=== PATIENT | female | born 1960 | race African-American/Black ===

== ENCOUNTER 2019-10-22 14:35 | Emergency (ER) | payer BC, SELFPAY ==
[2019-10-22 14:41] VITALS: BP 145/74; PULSE 83; RESP 16; TEMP 37; O2SAT 98
--- NOTE | 2019-10-22 14:55 | ED.URI ---
HPI - URI/Sore Throat General Chief Complaint: Upper Respiratory Infection Stated Complaint: sinus congestion Time Seen by Provider: 10/22/19 14:55 Source: patient and RN notes reviewed History of Present Illness HPI Narrative: Patient is a 59-year-old female presents the urgent care with complaints of sinus congestion, intermittent lightheadedness and coughing since Wednesday. Patient states that the cough subsided but she is still having a lot of postnasal drainage. Patient states that she has been taking cold and sinus Tylenol and ibuprofen [id number]. No other acute complaints. No acute distress noted. Patient read the plan of care. Related Data Allergies Allergy/AdvReac Type Severity Reaction Status Date / Time No Known Allergies Allergy Verified 06/28/14 13:48 Review of Systems Review of Systems: Narrative: CONSTITUTIONAL: Denies fever, chills, or sweats. EYES: Denies visual changes, redness, or discharge. ENT: Reports of rhinorrhea and postnasal drainage with sinus congestion CARDIOVASCULAR: Denies chest pain, palpitations, or edema. RESPIRATORY: Denies cough or dyspnea. GASTROINTESTINAL: Denies abdominal pain, nausea, vomiting, or diarrhea. GENITOURINARY: Denies dysuria or hematuria. SKIN: Denies rash or itching. MUSCULOSKELETAL: Denies back pain, joint pain, or myalgia. NEUROLOGIC: Denies headache, numbness, or weakness. All other systems reviewed are negative, except as documented in HPI. [facility] Family History Family History (Updated 10/08/16 @ 08:02 by DOCTOR UNKNOWN) Father Family history of lung cancer, Onset Age: 55 Mother Family history of malignant neoplasm of breast in first degree relative Family history of kidney disease, Onset Age: 70 Sibling Patient's sister is in good health Patient's brother is in good health Social History Social History Smoking status: Former smoker Second hand tobacco smoke exposure: No Smoking end date: 08/09/89 Alcohol intake: never Comments At the time of my signature, I reviewed and agree with the nursing past medical, surgical, social, and family history. There is no relevant family history pertinent to the patient complaint. Exam Narrative: Exam Narrative: GENERAL: This is a well-nourished, well-developed patient, in no apparent distress. HEAD: normocephalic, atraumatic. EYES: PERRL. Sclera clear/white. Vision is grossly intact. EARS: External ears normal, auditory canals clear and without drainage, TMs normal without perforation. Hearing grossly intact. NOSE: External nose normal with no obvious nasal discharge, nares without redness, clear rhinorrhea. THROAT: Mucous membranes moist, posterior pharynx clear. Mild postnasal drainage NECK: Neck supple CARDIOVASCULAR: Regular rate and rhythm without murmurs, gallops, or rubs. RESPIRATORY: Clear to auscultation. Breath sounds equal bilaterally. No wheezes, rales, or rhonchi. SKIN: warm, intact with no suspicious lesions or rash, good texture and turgor. NEURO: awake, alert, and oriented to person, place and time. There were no obvious focal neurologic abnormalities. EXTREMITIES: No clubbing, cyanosis, or edema. Course Vital Signs Vital signs: Vital Signs Temperature 98.6 F 10/22/19 14:41 Pulse Rate 83 10/22/19 14:41 Respiratory Rate 16 10/22/19 14:41 Blood Pressure 145/74 H 10/22/19 14:41 Pulse Oximetry 98 10/22/19 14:41 Temperature 98.6 F 10/22/19 14:41 Pulse Rate 83 10/22/19 14:41 Respiratory Rate 16 10/22/19 14:41 Blood Pressure 145/74 H 10/22/19 14:41 Pulse Oximetry 98 10/22/19 14:41 Reviewed?patient is informed that they may have pre-hypertension or hypertension based on a blood pressure reading in the department. I recommend the patient call the primary care provider listed on their discharge instructions or a physician of their choice this week to arrange follow-up for further evaluation of possible pre-hypertension or hypertension. MDM - URI/S
== END 2019-10-22 15:27 | disposition home or self-care (01) ==
PROVIDERS: Emergency Provider Nurse Practitioner Family; PCP Internal Medicine
DX: J32.9 Chronic sinusitis, unspecified (principal); Z87.891 Personal history of nicotine dependence
CPT/HCPCS: 99211; G0463

== ENCOUNTER 2019-10-27 04:18 | Emergency (ER) | payer BC, SELFPAY ==
--- NOTE | ~2019-10-27 | CT_ITS ---
EXAMINATION: CT chest wo con EXAM DATE: 10/27/2019 06:02 INDICATION: Bilateral groundglass opacities. TECHNIQUE: Spiral CT of the chest without contrast. Axial, coronal and sagittal images were reviewe d. Coronal maximum intensity pixel images of chest reviewed. The dose-length product (DLP) for this examination was 200.63 mGy-cm. The exposure was tailored according to patient size (auto mA exposur e control), and iterative reconstruction (ASIR) was used as additional dose reduction technique. The re is no prior study for comparison. FINDINGS: Bilateral patchy groundglass opacities consistent with acute lung injury probably from und erlying infection. COVID-19 should be considered. Right basilar predominant subpleural banding. No de nse confluent consolidation. There are no pleural or pericardial effusions. Tracheobronchial tree i s patent. There is no mediastinal, hilar or axillary lymphadenopathy. There is no pneumothorax. Heart normal in size. No evidence of coronary arterial calcification. Renal cysts. There is thor acic spondylosis without osteoblastic or osteolytic lesions identified. Goiter or left thyroid nodu le. IMPRESSION: 1. Scattered small regions patchy groundglass opacity consistent with acute lung injury. COVID-19 s hould be considered. 2. Right basilar subpleural banding. Reviewed, dictated and finalized at location A. IMPRESSION: 1. Scattered small regions patchy groundglass opacity consistent with acute cabrera ng injury. COVID-19 should be considered. 2. Right basilar subpleural banding.
--- NOTE | ~2019-10-27 | XR_ITS ---
EXAMINATION: XR chest 2V EXAM DATE: 10/27/2019 05:31 INDICATION: Myalgia, tachycardia. TECHNIQUE: Frontal and lateral projections of the chest obtained and reviewed. Comparison is made to prior examination from 06/12/2010. FINDINGS: Vague groundglass opacities and right basilar atelectasis better seen on CT. The lungs are otherwise clear. There are no pleural effusions. The cardiomediastinal silhouette is within normal limits. There is no pneumothorax suspected. The bones and soft tissues are unremarkable. IMPRESSION: Vague airspace disease better seen on CT. Probably infection. Reviewed, dictated and finalized at location A.
--- NOTE | ~2019-10-27 | CT_ITS ---
EXAMINATION: CT abdomen pelvis w con EXAM DATE: 10/27/2019 05:28 INDICATION: Bilateral flank pain. Recently diagnosed with bladder infection. TECHNIQUE: Spiral CT of the abdomen and pelvis was performed following intravenous injection of 100 m L Omnipaque 350. Axial, coronal and sagittal images were reviewed. The dose-length product (DLP) fo r this examination was 670.21 mGy-cm. The exposure was tailored according to patient size (auto mA e xposure control), and iterative reconstruction (ASIR) was used as additional dose reduction technique . There is no prior study for comparison. FINDINGS: The liver, spleen, adrenal glands and pancreas are unremarkable. Gallbladder is unremarkab le. No biliary obstruction. Portal and splenic veins are patent. Kidneys enhance symmetrically. T here is no hydronephrosis. There are multiple renal cysts within both kidneys, largest in the left ki dney measuring 6 cm. The uterus is not identified and has likely been surgically resected. The blad yanick is unremarkable. There is no retroperitoneal or pelvic lymphadenopathy. The appendix is normal. There is small sliding gastroesophageal hiatal hernia. There is expected am ount of colonic stool. No free intraperitoneal gas. The heart is normal in size. There are no pe ricardial or pleural effusions. Small regions of bilateral peripheral linear groundglass airspace di sease suggesting acute infection or lung injury. Covid-19 is in the differential diagnosis. Clinical correlation recommended. Additional linear subpleural banding, atelectasis more in the right lung bas e. There are no osteoblastic or osteolytic lesions identified. IMPRESSION: 1. Bilateral groundglass opacities and subpleural banding, likely infectious or acute lung injury. Covid-19 is in the differential diagnosis. 2. No acute intra-abdominal findings. 3. Small hiatal hernia. 4. Renal cysts. Otherwise unremarkable system. Reviewed, dictated and finalized at location A. IMPRESSION: 1. Bilateral groundglass opacities and subpleural banding, likely infectious o r acute lung injury. Covid-19 is in the differential diagnosis. 2. No acute intra-abdominal findings. 3. Small hiatal hernia. 4. Renal cysts. Otherwise unremarkable system.
[2019-10-27 04:19] VITALS: BP 113/65; PULSE 123; RESP 14; TEMP 37.2; O2SAT 100
--- NOTE | 2019-10-27 04:24 | ED.ABDPAIN ---
HPI - Abdominal Pain General Chief Complaint: Urogenital-Female Stated Complaint: bladder infections Time Seen by Provider: 10/27/19 04:23 Source: patient Mode of arrival: wheelchair Limitations: no limitations History of Present Illness HPI narrative: Patient is a 59-year-old female who presents for evaluation of weakness. Patient reports she has had sinus congestion, weakness, muscle aches, back pain over the past 5 days. Patient was recently diagnosed with a UTI by her primary care physician after having some blood present in her urine. She has been taking Macrobid as prescribed, but states she has not felt well. Patient states she felt that she was nearly going to pass out earlier this evening, but had no loss of consciousness. Symptoms are worse with ambulation. When she walks, she experiences some dizziness. It resolves when she sits down. No numbness. Patient has been nauseated, no vomiting or abdominal pain. No recent travel. Recent influenza swab at her primary care physician's office was negative. Related Data Allergies Allergy/AdvReac Type Severity Reaction Status Date / Time No Known Allergies Allergy Verified 06/28/14 13:48 Review of Systems Review of Systems: Narrative: CONSTITUTIONAL: Reports chills EYES: Denies visual changes, redness, or discharge. ENT: Reports rhinorrhea, congestion, denies sore throat CARDIOVASCULAR: Denies chest pain, palpitations, or edema. RESPIRATORY: Denies cough or dyspnea. GASTROINTESTINAL: Denies abdominal pain, reports nausea, denies vomiting. GENITOURINARY: Denies dysuria or hematuria. SKIN: Denies rash or itching. MUSCULOSKELETAL: Denies back pain, joint pain, or myalgia. NEUROLOGIC: Denies headache, denies numbness, reports weakness PMFSH Family History Family History Father Family history of lung cancer, Onset Age: 55 Mother Family history of malignant neoplasm of breast in first degree relative Family history of kidney disease, Onset Age: 70 Sibling Patient's sister is in good health Patient's brother is in good health Social History Social History Smoking status: Former smoker Second hand tobacco smoke exposure: No Smoking end date: 08/09/89 Alcohol intake: never Exam Narrative: Exam Narrative: GENERAL: Awake, alert, conversant HEAD: Normocephalic, atraumatic. EYES: PERRLA and EOMI. ENT: Nares clear, no rhinorrhea or epistaxis. Mucous membranes moist. NECK: Supple. CHEST: Clear to auscultation. No respiratory distress. HEART: Regular rate and rhythm patient is not tachycardic in room. No murmur heard. Normal peripheral pulses. ABDOMEN: Soft, nontender, nondistended, normal active bowel sounds. Bilateral flank tenderness EXTREMITIES: Normal range of motion. No edema. SKIN: Warm, dry, no rash. NEURO: Finger to nose intact bilaterally. EOMs intact without nystagmus. No facial droop/asymmetry noted bilaterally. Grimace intact. Intact sensation in face. Hearing intact bilaterally. Shoulder shrug intact. Strength 5/5 bilateral upper extremities. Strength 5/5 bilateral lower extremities. Reflexes 2+ patellar. Heel to newsome intact bilaterally. Ambulatory exam deferred. Course Course Emergency Course: Patient presented to the emergency department for evaluation of weakness, myalgias, general malaise. At the time of assessment, ABCs are intact, vital signs notable for mild tachycardia that is nearly resolved at the time of assessment. Patient is afebrile and well-appearing. No respiratory distress. No abdominal tenderness, she does have bilateral flank tenderness. IV access was obtained and labs are drawn. Laboratory results show no leukocytosis, no lymphopenia. No transaminitis. Patient with CT abdomen/pelvis that is somewhat concerning for bilateral patchy groundglass opacities concerning for novel coronavirus 19. CT scan also is diagnostic of this
--- NOTE | 2019-10-27 04:34 | ECG_ITS ---
Measurements Intervals [place] Rate: 103 P: 60 UT: 159 QRS: -12 QRSD: 99 T: -3 QT: 342 QTc: 449 Interpretive Statements SINUS TACHYCARDIA DELAYED PRECORDIAL R/S TRANSITION BORDERLINE T WAVE ABNORMALITY- ANT/INF LEADS BASELINE ARTIFACT- I, II, III, AVR, AVL, AVF BORDERLINE ECG Electronically Signed On 10-27-2019 7:25:04 CDT by Prakash García D.O.
[2019-10-27] MEDS: SODIUM CHLORIDE 0.9% IV 1,000 ML 999 ML IV CONT (04:52)
[2019-10-27] MEDS: ONDANSETRON INJ 4 MG/2 ML VIAL IV PUSH (04:53)
[2019-10-27 04:55] LABS: Basophils Percent Auto 0.2 % (0.2-1.2); Hematocrit 35.5 % (37.0-47.0); Hemoglobin 12.2 g/dL (12.0-15.0); Immature Granulocyte Absolute 0.01 K/mm3 (0.00-0.031); Immature Granulocyte Percent A 0.2 % (0-0.5); Lymphocytes Absolute Auto 1.64 K/mm3 (0.9-3.2); Lymphocytes Percent Auto 29.7 % (18.3-44.2); Mean Corpuscular HGB Conc 34.4 g/dl (32-36); Mean Corpuscular Hemoglobin 28.4 pg (26-34); Mean Corpuscular Volume 82.6 fl (80-100); Mean Platelet Volume 10.7 fl (7.4-10.4); Monocytes Absolute Auto 0.3 K/mm3 (0.1-0.6); Monocytes Percent Auto 5.1 % (2.6-8.5); Neutrophils Absolute Auto 3.6 K/mm3 (1.3-6.7); Neutrophils Percent Auto 64.8 % (45.5-73.1); Platelet Count Result 174 k/mm3 (150-375); White Blood Count 5.5 K/mm3 (4.5-10.0)
[2019-10-27 05:01] VITALS: BP 132/69; PULSE 97; RESP 19; O2SAT 96
[2019-10-27 05:02] LABS: Add Urine Microscopic? YES; Appearance Urine Clear (Clear); Bacteria Urine Trace /hpf; Bilirubin Urine Negative (Negative); Blood Urine 2+ (Negative); Color Urine Yellow (Yellow); Glucose Urine UA Negative (Negative); Ketones Urine Negative (Negative); Leukocyte Esterase Ur Negative LEU/UL (Negative); Nitrate Urine Negative (Negative); Protein Urine Negative (Negative); Specific Grav Ur 1.013 (1.001-1.035); Squamous Epithelial Cell Urine Occasional /hpf (Few); WBC Urine 0-3 /hpf
[2019-10-27 05:05] LABS: Prothrombin Time 12.9 Seconds (11.1-14.7)
--- NOTE | 2019-10-27 05:05 | PC.NURSE ---
pt states nausea has resolved. md notified.
[2019-10-27 05:06] LABS: Alanine Aminotransferase 15 U/L (4-35); Albumin Level 4.1 g/dL (3.5-5.1); Alkaline Phosphatase 74 U/L (38-126); Aspartate Amino Transferase 25 U/L (14-36); Bilirubin,Total 1.2 mg/dL (0.2-1.3); Blood Urea Nitrogen 15 mg/dL (7-17); Calcium 8.5 mg/dL (8.4-10.2); Carbon Dioxide 25 mmol/L (22-30); Chloride 99 mmol/L (98-107); Estimated Glomerular Filt Rate 56; Glucose 135 mg/dL (65-105); Lipase 186 U/L (23-300); Partial Thromboplastin Time 27.1 SECONDS (22.3-36.8); Potassium 3.2 mmol/L (3.4-5.0); Sodium 136 mmol/L (137-145)
[2019-10-27 05:17] LABS: Troponin I < 0.012 ng/mL (0.000-0.034)
[2019-10-27 06:10] VITALS: BP 125/64; PULSE 84; RESP 21; O2SAT 98
[2019-10-27 06:26] LABS: Lactate Dehydrogenase 451 U/L (313-618)
[2019-10-27 06:28] LABS: CRP 5.6 mg/dL (<1.0)
[2019-10-27 06:35] VITALS: BP 117/74; PULSE 82; RESP 17; O2SAT 100
[2019-10-27 07:25] VITALS: BP 129/88; PULSE 78; RESP 18; O2SAT 98
[2019-10-29 12:55] LABS: Procalcitonin <0.10 ng/mL (<0.10)
[2019-11-02 08:08] LABS: Pan-SARS RNA: Positive (Negative); SARS-CoV-2 RNA: Positive (Negative)
== END 2019-10-27 07:25 | disposition home or self-care (01) ==
PROVIDERS: Emergency Provider Emergency Medicine; PCP Internal Medicine
DX: J12.89 Other viral pneumonia (principal); B97.29 Other coronavirus as the cause of diseases classified elsewhere; N39.0 Urinary tract infection, site not specified; Z87.891 Personal history of nicotine dependence
CPT/HCPCS: 36415; 71046; 71250; 74177; 80053; 81001; 81025; 83615; 83690; 84145; 84484; 85025; 85610; 85730; 86140; 87635; 87804; 93005; 96361; 96374; 96375; 99284; J0131; J2405; J7030; Q9967; U0002

== ENCOUNTER 2019-10-30 09:11 | Emergency (ER) | payer BC, SELFPAY ==
[2019-10-30] VITALS (8 sets, daily range): BP systolic 126–157; BP diastolic 55–77; PULSE 83–110; RESP 18–25; TEMP 37.7; O2SAT 98–100
--- NOTE | 2019-10-30 09:14 | ED.GENADULT ---
HPI - General Adult General Chief complaint: Nausea/Vomiting/Diarrhea Stated complaint: not feeling well Time Seen by Provider: 10/30/19 09:13 Source: patient and family Mode of arrival: ambulatory Limitations: no limitations History of Present Illness HPI narrative: Pt is here for symptoms of nausea and diarrhea. She was seen here on 10/26 and tested for COVID19 due to respiratory symptoms and concerning CT findings. Those results are not yet back. She was started on Doxycycline due to CT findings consistent with pneumonia. She had been on another antibiotic last week for treatment of UTI by PMD. Her GI symptoms startes yesterday morning, she is unable to quantify the amount of diarrhea episodes, stating every time I go to the bathroom, sometimes a lot, sometimes a little . She has been drinking approx 2 bottles of water a day and has attempted Gatorade. She has no new respiratory symptoms and no fever. Onset (ago): day(s) Associated symptoms: denies other symptoms Treatments prior to arrival: none Related Data Allergies Allergy/AdvReac Type Severity Reaction Status Date / Time No Known Allergies Allergy Verified 06/28/14 13:48 Review of Systems Review of Systems: All systems reviewed & are unremarkable except as noted in HPI and below PMFSH Family History Family History Father Family history of lung cancer, Onset Age: 55 Mother Family history of malignant neoplasm of breast in first degree relative Family history of kidney disease, Onset Age: 70 Sibling Patient's sister is in good health Patient's brother is in good health Social History Social History Smoking status: Former smoker Second hand tobacco smoke exposure: No Smoking end date: 08/09/89 Alcohol intake: never Gender identity (if verbalized by the patient): Female Exam Const: General: no acute distress and alert Orientation/consciousness: patient oriented x3 HENMT: Head: normal to inspection General nose exam: Normal nares present Mouth: Yes moist mucous membranes Eyes: Conjunctivae: conjunctivae normal Pupils: Equal, round and reactive pupils present Resp: Effort & Inspection: normal respiratory effort Auscultation: rales bilateral at the base Cardio: Rate: tachycardic (108) Rhythm: regular rhythm GI: GI Palp: Yes Soft to palpation Auscultation: normal bowel sounds : General: Yes no CVA tenderness Skin: General skin exam: normal color Rashes: no rashes Neuro: General: patient oriented x3 and moves all extremities Extrem: General: normal to inspection Psych: Mental Status: mental status grossly normal Course Course Emergency Course: Hr has come down with 1L NS. Pt is to continue antibiotic as prescribed. I will prescribe zofran for nausea and she is instructed to take OTC antidiarrheal as needed. Increase PO intake and avoid sugary drinks such as gatorade, drink G2 or any liquid tolerated. Eat crackers and toast or soup until better. Continue to self-quarantine until test results are back. Discharge Plan Discharge Clinical Impression: Diarrhea due to drug Pneumonia Qualifiers: Pneumonia type: due to unspecified organism Laterality: bilateral Lung location: unspecified part of lung Qualified Code(s): J18.9 - Pneumonia, unspecified organism Patient Disposition: Home, Self-Care Condition: Stable Instructions: Antibiotic Form, Acute Diarrhea (ED) Additional Instructions: Use incentive spirometer for deep breathing and cough. Use every 1-2 hrs as instructed. Take zofran for nausea. Use over the counter antidiarrheal as directed on package. Continue antibiotic as prescribed. Please self-quarantine until your COVID19 results are back. Prescriptions: New ondansetron HCl [Zofran] 4 mg tablet 4 mg PO Q6H PRN (Reason: nausea and vomiting) Qty: 10 RF: 0 No Action doxycycline hyclate 100 mg caps
--- NOTE | 2019-10-30 09:21 | PC.NURSE ---
Pt comes to ED via w/c per sister. Screening for COVID-19 performed, and pt placed with mask on arrival to the ED. Pt states has been dx with pneumonia and has been unable to keep po meds down and is feeling worse.
[2019-10-30] MEDS: SODIUM CHLORIDE 0.9% IV 1,000 ML 999 ML IV CONT (09:53)
== END 2019-10-30 11:24 | disposition home or self-care (01) ==
PROVIDERS: Emergency Provider Emergency Medicine; PCP Internal Medicine
DX: K52.1 Toxic gastroenteritis and colitis (principal); T36.4X5A Adverse effect of tetracyclines, initial encounter; J18.9 Pneumonia, unspecified organism; Z87.891 Personal history of nicotine dependence
CPT/HCPCS: 96360; 99283; J7030

== ENCOUNTER 2020-06-28 14:22 | Outpatient (CLI) | payer BC, SELFPAY ==
--- NOTE | ~2020-06-28 | MM_ITS ---
EXAMINATION: MM screening hafsa BI w suman HISTORY: Screening mammogram, family history of breast cancer in her mother. TECHNIQUE: Craniocaudal and mediolateral oblique 3-D tomosynthesis images were obtained and synthetic 2-D images were generated. CAD analysis was submitted and interpreted. COMPARISON: 06/23/2018, 04/20/2016, 03/22/2015 BREAST PARENCHYMAL COMPOSITION: The breasts are almost entirely fatty. FINDINGS: There is no evidence of suspicious mass, calcification, or architectural distortion to sugg est malignancy in either breast. There has been no suspicious interval change. IMPRESSION: 1. No mammographic evidence of malignancy. 2. Recommend routine screening mammography in one year. BI-RADS Category 1: Negative Reviewed, dictated and finalized at location A. 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
--- NOTE | ~2020-06-28 | DEXA_ITS ---
Bone Density Report Name: Micheline Rabago Age: 59 Sex: Female Ethnicity: Black Date of : 1960 Indication: postmenopausal; hysterectomy; Referring Provider: AMRITA PEACE Study: Bone densitometry was performed. Exam Date: June 28, 2020 Accession number: [id number] Bone Density: Region BMD T-score Z-score Classification AP Spine (L1-L4) 1.326 2.5 3.0 Normal Femoral Neck (Left) 1.069 2.0 1.8 Normal Total Hip (Left) 1.323 3.1 2.5 Normal Total Hip Bilateral Avg 1.282 2.8 2.3 Normal Femoral Neck (Right) 1.091 2.2 1.9 Normal Total Hip (Right) 1.239 2.4 2.0 Normal World Health Organization criteria for BMD impression classify patients as: Normal (T-score at or above -1.0), Osteopenia (T-score between -1.0 and -2.5), or Osteoporosis (T-score at or below -2.5). 10-year Fracture Risk: FRAX not reported because: All T-scores for Spine Total, Hip Total, Femoral Neck at or above -1.0 Previous Exams: Region Exam Age BMD T-score BMD Change BMD Change Date g/cm2 vs Baseline vs Previous AP Spine(L1-L4) 06/28/2020 59 1.326 2.5 -0.114(-7.9%)# -0.114(-7.9%)# 04/20/2016 55 1.440 3.6 Total Hip(Left) 06/28/2020 59 1.323 3.1 -0.050(-3.6%)# -0.050(-3.6%)# 04/20/2016 55 1.373 3.5 Total Hip(Right) 06/28/2020 59 1.239 2.4 -0.052(-4.0%)# -0.052(-4.0%)# 04/20/2016 55 1.291 2.9 *Denotes significance at 95% confidence level, LSC for AP Spine = 0.022 g/cm2, LSC for Total Hip = 0.027 g/cm2 Clinical Information Provided by Patient: Has used the following medications: Vitamin D, Calcium Has the following medical conditions: Hysterectomy Patient maximum height was 68 Menopause Age: 44 No regular weight bearing exercise Does not regularly consume dairy products Drinks caffeinated beverages Onset of menses at age 16 Number of children 2 Impression: The patient has normal bone mass. No significant bone loss was observed. Discussion: BONE DENSITY IS ABOVE THE MINIMUM DESIRABLE LEVEL AT ALL SKELETAL SITES TESTED. This patient?s bone mineral density is above the minimum desirable level (T-score -1.0 or better) at all sites measured. The patient should follow a healthful lifestyle (good nutrition with adequate calcium and vitamin D, and appropriate weight-bearing exercise). Follow-Up: Consider repeating this study in 5 years or sooner if there is some new clinical indication. Reported by: DELVIS on 06/28/2020 2:49:00 PM.
== END 2020-06-28 14:23 | disposition home or self-care (01) ==
PROVIDERS: Visit Provider Obstetrics & Gynecology Gynecology
DX: Z12.31 Encounter for screening mammogram for malignant neoplasm of breast (principal); Z78.0 Asymptomatic menopausal state
CPT/HCPCS: 77063; 77067; 77080

== ENCOUNTER 2021-06-30 09:07 | Outpatient (CLI) | payer BC, SELFPAY ==
--- NOTE | ~2021-06-30 | MM_ITS ---
EXAMINATION: MM screening hafsa BI w suman HISTORY: Screening mammogram, family history of breast cancer in her mother. TECHNIQUE: Craniocaudal and mediolateral oblique 3-D tomosynthesis images were obtained and synthetic 2-D images were generated. CAD analysis was submitted and interpreted. COMPARISON: 06/28/2020, 06/23/2018 BREAST PARENCHYMAL COMPOSITION: The breasts are almost entirely fatty. FINDINGS: There is no evidence of suspicious mass, calcification, or architectural distortion to sugg est malignancy in either breast. There has been no suspicious interval change. IMPRESSION: 1. No mammographic evidence of malignancy. 2. Recommend routine screening mammography in one year. BI-RADS Category 1: Negative Reviewed, dictated and finalized at location A. 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
== END 2021-06-30 09:08 | disposition home or self-care (01) ==
LOC: ANHIMG 09:11
PROVIDERS: Visit Provider Obstetrics & Gynecology Gynecology
DX: Z12.31 Encounter for screening mammogram for malignant neoplasm of breast (principal)
CPT/HCPCS: 77063; 77067

== ENCOUNTER 2022-08-18 09:05 | Outpatient (CLI) | payer BC, SELFPAY ==
--- NOTE | ~2022-08-18 | MM_ITS ---
EXAMINATION: MM screening hafsa BI w suman HISTORY: Screening mammogram TECHNIQUE: Craniocaudal and mediolateral oblique 3-D tomosynthesis images were obtained and synthetic 2-D images were generated. CAD analysis was submitted and interpreted. COMPARISON: 06/30/2021, 06/28/2020, 06/23/2018 bilateral screening mammogram examinations BREAST PARENCHYMAL COMPOSITION: There are scattered areas of fibroglandular density. FINDINGS: There is no evidence of suspicious mass, calcification, or architectural distortion to sugg est malignancy in either breast. There has been no suspicious interval change. IMPRESSION: 1. No mammographic evidence of malignancy. 2. Recommend routine screening mammography in one year. BI-RADS Category 1: Negative Reviewed, dictated and finalized at location A. [employer]
== END 2022-08-18 09:06 | disposition home or self-care (01) ==
PROVIDERS: Visit Provider Obstetrics & Gynecology Gynecology
DX: Z12.31 Encounter for screening mammogram for malignant neoplasm of breast (principal)
CPT/HCPCS: 77063; 77067

== ENCOUNTER 2023-10-12 09:38 | Outpatient (CLI) | payer BC, SELFPAY ==
--- NOTE | ~2023-10-12 | MM_ITS ---
EXAMINATION: MM screening hafsa BI w suman HISTORY: Screening mammogram TECHNIQUE: Craniocaudal and mediolateral oblique 3-D tomosynthesis images were obtained and synthetic 2-D images were generated. CAD analysis was submitted and interpreted. COMPARISON: 08/18/2022, 06/30/2021 bilateral screening mammogram examinations BREAST PARENCHYMAL COMPOSITION: The breasts are almost entirely fatty. FINDINGS: There is no evidence of suspicious mass, calcification, or architectural distortion to sugg est malignancy in either breast. There has been no suspicious interval change. IMPRESSION: 1. No mammographic evidence of malignancy. 2. Recommend routine screening mammography in one year. BI-RADS Category 1: Negative Reviewed, dictated and finalized at location A. 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
== END 2023-10-12 09:39 | disposition home or self-care (01) ==
PROVIDERS: Visit Provider Obstetrics & Gynecology Gynecology
DX: Z12.31 Encounter for screening mammogram for malignant neoplasm of breast (principal)
CPT/HCPCS: 77063; 77067

== ENCOUNTER 2024-09-25 01:00 | Day surgery (SDC) | payer BC, SELFPAY ==
[2024-09-08 11:06] VITALS: BMI 31.1
--- OUTSIDE RECORDS SUMMARY | 2024-09-25 01:03 | XMS_ITS | Clinical Summary ---
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
--- OUTSIDE RECORDS SUMMARY | 2024-09-25 01:03 | XMS_ITS | Clinical Summary ---
Author Organization [facility] Address [address] [place] [address] Care Team Providers Care Backwinder Name Role Phone Cheo Espino MD Primary Care Provider Allergies Active Allergy Reactions Criticality Noted Date Comments Iodinated Contrast Media Rash Medium 09/24/2020 Medications hydroCHLOROthiazi de (MICROZIDE) 12.5 MG tabletIndications :Primary hypertension Take 1 tablet (12.5 mg total) by mouth daily. 90 tablet 1 4 Active vitamin D2, ergocalciferol, (DRISDOL) 1.25 mg capsuleIndication s:Vitamin D deficiency take 1 capsule by mouth 1 time a week 12 capsule 3 4 Active Active Problems Problem Noted Date Diagnosed Date Class 1 obesity due to exces s calories without serious comorbidity with body mass index (BMI) of 31.0 to 31.9 in adult 03/26/2021 Essential hypertension 03/26/2021 Multinodular goiter 08/27/2020 Overview (04/30/2023): FNA October 2020: left thyroid nodule fine-needle aspirate specimen is received as one ThinPrep slide. The slide shows scattered small follicular aggregates and focal proteinaceous debris and pigment laden macrophages. These findings are most consistent with a benign follicular nodule ([place] II) with degenerative changes seen. Last Assessment & Plan: Multinodular goiter S/p left thyroid nodule FNA biopsy with benign cytology No compressive symptoms performed a follow up thyroid ultrasound in office today - noted stable thyroid nodules Follow up in one year Immunizations Name Administration Dates Next Due Tdap (Adacel) 10/22/2023 Family History Medical History Relation Comments Cancer Brother 1 Cancer Brother 2 Cancer Father No Known Problems Maternal Grandfather No Known Problems Maternal Grandmother Cancer Mother Relation Status Comments Brother 1 Alive Brother 2 Father Maternal Grandfather Maternal Grandmother Mother Alive Social History Tobacco Use Types Packs/Day Years Used Date Smoking Tobacco: Former Cigarettes Smokeless Tobacco: Never Tobacco Cessation:Counseling Given: Yes Comments:Counseled by Dr. Espino. Alcohol Use Standard Drinks/Week Comments Yes 1.7 (1 standard drink = 0.6 oz p ure alcohol) socially AUDIT-C Answer Date Recorded Q1: How often do you have a drink containing alc ohol? Monthly or less 05/01/2024 Q2: How many drinks containi ng alcohol do you have on a typical day when you are drinking? 1 or 2 05/01/2024 Q3: How often do you have si x or more drinks on one occasion? Never 05/01/2024 PHQ-2 Answer Date Recorded Patient Health Questionnaire-2 Score 0 05/01/2024 Comments No Sex and Gender Information Value Date Recorded Sex Assigned at Not on file Legal Sex Female 3:38 PM CDT Gender Identity Not on file Sexual Orientation Not on file Last Filed Vital Signs Vital Sign Reading Time Taken Comments Blood Pressure 115/75 05/01/2024 9:47 AM CDT Pulse 72 05/01/2024 9:47 AM CDT Temperature 36.7 C (98 F) 05/01/2024 9:47 AM CDT Respiratory Rate 14 05/01/2024 9:47 AM CDT Oxygen Saturation 97% 05/01/2024 9:47 AM CDT Inhaled Oxygen Concentration - - Weight 93.5 kg (206 lb 3.2 oz) 05/01/2024 9:47 A M CDT Height 172.7 cm (5' 8 ) 05/01/2024 9:47 AM CDT Body Mass Index 31.35 05/01/2024 9:47 AM CDT Plan of Treatment Upcoming Encounters Date Type Department Care Team (Late st Contact Info) Description 11/13/2024 9:40 AM CDT Office Visit [facility] [address] [place] [address] Cheo Espino MD [address] [facility] [address] [place] [address] Health Maintenance Due Date Last Done Comments Mammogram Screening 2002 Zoster Vaccines (1 of 2) 2012 COVID-19 Vaccine ( - 2023-2 5 season) 2024 Influenza Adult (#1) 2024 Colorectal Cancer Screening Colonoscopy (10 Years) 07/10/2024 07/10/2014 PHQ-2 (Physician [place]) 08/09/2024 05/01/2024 Annual Physical 05/01/2025 05/01/2024, 04/30/2023 DTaP, Tdap and Td Vaccines ( 2 - Td or Tdap) 10/21/2033 10/22/2023 RSV Immunization or 60+ Years (1 - 1-dose 75+ series) 2037 Hepatitis C Completed 05/01/2024 Meningococcal B Vaccine Aged Out No l onger eligible based on patient's age to complete this topic Meningococcal Vaccine Aged Out No penny jessy eligible based on patient's age to complete this topic Pneumococcal Vaccine: Pediatrics (0 to 5 Years) and At-Risk Patients (6 to 64 Years) Aged Out No longer eligible b ased on patient's age to complete this topic RSV Immunizations Under 20 Months Aged Out No longer eligible b ased on patient's age to complete this topic Procedures Procedure Name Priority Date/Time Associated Diagnosis Comments HEPATITIS C ANTIBODY Routine 05/01/2024 10:17 AM CDT Encounter for hepatitis C screening test for low risk patient COLONOSCOPY GENERIC (SCAN ORDER) 07/10/2014 from Last 3 Months or Most Recently Relevant to Health Maintenance Results * HEPATITIS C ANTIBODY ([facility] ONLY) (05/01/2024 10:17 AM CDT) HEPATITIS C AB NON-REACTI VE NON-REACT VASU 05/01/2024 11:18 PM CDT [facility] Comment: ANTIBODIES TO HCV NOT DETECTED. DOES NOT EXCLUDE THE POSSIBILITY OF EXPOSURE TO HCV. 05/01/2024 10:1 7 AM CDT Cheo Espino MD LABORATORY Final Result [facility] [address] [place] [address], [id number] * COLONOSCOPY GENERIC (SCAN ORDER) (07/10/2014) 07/10/2014 us [facility] Scanned SCANNING Final Resu lt from Last 3 Months or Most Recently Relevant to Health Maintenance Insurance [facility] Care Teams Backwinder Relationship Specialty Start Date End Date Cheo Espino MD [address] [facility] [address] [place] [address] PCP - General INTERNAL MEDICINE 04/30/23
--- OUTSIDE RECORDS SUMMARY | 2024-09-25 01:03 | XMS_ITS | Clinical Summary ---
[facility] Address [address] [place] [address] Care Team Providers Care Preschool Head Teacher Name Role Phone Jus, Kane Chase MD Primary Care Provider + Allergies Active Allergy Reactions Criticality Noted Date Comments Iodinated Contrast Media Rash Medium 09/24/2020 Medications hydroCHLOROthiazi de (HYDRODIURIL) 12.5 mg tabletIndications :Essential hypertension TAKE 1 TABLET(12.5 MG) BY MOUTH DAILY 90 tablet 3 2 Active ergocalciferol (VITAMIN D) 50,000 unit capsule Take 1 capsule (50,000 Units total) by mouth once a week Active Active Problems Problem Noted Date Diagnosed Date Essential hypertension 03/26/2021 Class 1 obesity due to exces s calories without serious comorbidity with body mass index (BMI) of 31.0 to 31.9 in adult 03/26/2021 TMJ (temporomandibular joint disorder) 1 History of COVID-19 03/26/2021 Multinodular goiter 08/27/2020 Overview (03/26/2021): FNA October 2020: left thyroid nodule fine-needle aspirate specimen is received as one ThinPrep slide. The slide shows scattered small follicular aggregates and focal proteinaceous debris and pigment laden macrophages. These findings are most consistent with a benign follicular nodule ([place] II) with degenerative changes seen. Assessment & Plan (01/31/2024 12:56 PM CDT): Multinodular goiter S/p left thyroid nodule FNA biopsy with benign cytology performed a follow up thyroid ultrasound in office today - noted stable right thyroid nodule, Stable left superior dominant thyroid nodule, in left lobe inferiorly most of the nodules have collapsed within each other and overall the left lobe is extending sub sternally No compressive symptoms Discussed with patient and advised to consider possible left thyroidectomy in the future , given the size of the left thyroid lobe Follow up in one year Assessment & Plan (01/28/2023 10:57 AM CDT): Multinodular goiter S/p left thyroid nodule FNA biopsy with benign cytology No compressive symptoms performed a follow up thyroid ultrasound in office today - noted stable thyroid nodules Follow up in one year Assessment & Plan (02/01/2022 2:30 PM CDT): Multinodular goiter S/p left thyroid nodule FNA biopsy with benign cytology No compressive symptoms performed a follow up thyroid ultrasound in office today - noted stable thyroid nodules Follow up in one year Assessment & Plan (01/26/2021 4:46 PM CDT): Multinodular goiter S/p left thyroid nodule FNA biopsy with benign cytology No compressive symptoms performed a follow up thyroid ultrasound in office today - noted stable thyroid nodules Follow up in one year Assessment & Plan (10/30/2020 9:17 AM CDT): Reviewed and discussed with pt her recent CT scan neck results Plan to perform left thyroid nodule FNA today in office Further plans based on cytology results Assessment & Plan (08/27/2020 7:54 AM SOCK DRIER): Reviewed pt last thyroid ultrasound report Performed a f/w thyroid ultrasound in office today , noted left thyroid lobe is very enalrged and noted 2 left thyroid nodules approx 3 cm each. Stable right thyroid and isthmus nodules Plan to obtain CT neck and chest - due to pt c/o resp issues and also left thyroid lobe is extending into mediastinum, so to know better dimensions of left thyroid Lobe and to rule out any tracheal compromise Also schedule pt for left thyroid nodule FNA soon in office Further plans based on above SOB (shortness of breath) 08/27/2020 Overview (03/26/2021): Post covid symptom Swelling of lymph node 08/27/2020 Surgical History Surgery Date Site/Laterality Comments HYSTERECTOMY 08/09/2004 - 08/08/2005 due to uterine fibroids. she did not have a salpingo ophorectomy HERNIA REPAIR umbilical Medical History Medical History Date Comments Hypertension Family History Medical History Relation Name Comments Thyroid disease Brother 1 No Known Problems Brother 2 No Known Problems Brother 3 No Known Problems Daughter Cancer Father Lung cancer lung cancer (sm oker) Breast cancer Mother Breast cancer Cancer Mother Breast cancer No Known Problems Other No Known Problems Sister 1 No Known Problems Sister 2 No Known Problems Sister 3 Relation Name Status Comments Brother 1 Alive Brother 2 Alive Brother 3 Alive Daughter Alive Father Lung cancer Mother Breast cancer Alive Other Alive Sister 1 Alive Sister 2 Alive Sister 3 Alive Social History Tobacco Use Types Packs/Day Years Used Date Smoking Tobacco: Former Cigarettes Q uit: 03/14/1980 Smokeless Tobacco: Never Tobacco Cessation:Counseling Given: Not Answered Alcohol Use Standard Drinks/Week Comments Yes 0 (1 standard drink = 0.6 oz pur e alcohol) AUDIT-C Answer Date Recorded Q1: How often do you have a drink containing alc ohol? Monthly or less 01/23/2022 Q2: How many drinks containi ng alcohol do you have on a typical day when you are drinking? 1 or 2 01/23/2022 Q3: How often do you have si x or more drinks on one occasion? Never 01/23/2022 PHQ-2 Answer Date Recorded PHQ-2 Total Score (If total score is 3 or more points, staff should administer the PHQ-9) 0 01/31/2024 Personal Safety Answer Date Recorded Getting School Help Needed Not on file 07/21 Comments No Sex and Gender Information Value Date Recorded Sex Assigned at Not on file Legal Sex Female 2:17 AM SOCK DRIER Gender Identity Female 08/26/2020 9:52 AM SOCK DRIER Sexual Orientation Not on file Obstetrics History Last Filed Vital Signs Vital Sign Reading Time Taken Comments Blood Pressure 130/76 01/31/2024 10:22 AM CDT Pulse 78 01/31/2024 10:22 AM CDT Temperature 36.5 C (97.7 F) 03/26/2021 11:51 AM CDT Respiratory Rate 16 01/31/2024 10:22 AM CDT Oxygen Saturation 98% 04/30/2022 11:11 AM CDT Inhaled Oxygen Concentration - - Weight 94.3 kg (208 lb) 01/31/2024 10:22 AM CDT Height 172.7 cm (5' 8 ) 01/31/2024 10:22 AM CDT Body Mass Index 31.63 01/31/2024 10:22 AM CDT Plan of Treatment Health Maintenance Due Date Last Done Comments Colon Cancer Screening-Colonoscopy 1962 Hepatitis B Screening 1980 Zoster Vaccine (1 of 2) 2012 Regular Well Visit/Exam 18-64 04/30/2023 04/30/2022, 03/26/2021 Breast Cancer Screening-Mammogram 08/18/2023 08/18/2022 Influenza Vaccine (#1) 2024 Depression Screening 01/30/2025 01/31/2024, 06/18/2022, 04/30/2022, Additional history exists DTaP/Tdap/Td Vaccine (2 - Td or Tdap) 10/21/2033 10/22/2023 Hepatitis C Screening Completed 04/21/2021 Pneumococcal vaccine <65 Aged Out No longer eligible based on patient's age to complete this topic Procedures Procedure Name Priority Date/Time Associated Diagnosis Comments HEPATITIS C ANTIBODY Routine 04/21/2021 10:18 AM CDT Annual physical exam Encounter for hepatitis C screening test for low risk patient from Last 3 Months or Most Recently Relevant to Health Maintenance Results * Hepatitis C antibody (04/21/2021 10:18 AM CDT) Hep C Ab Nonreactive Nonreactive [facility] Comment: Interpretive Data Nonreactive: Antibodies to HCV not detected. Does NOT exclude the possibility of recent exposure to HCV. Equivocal: Equivocal for HCV antibodies. Supplemental molecular testing will be automatically performed to determine infection status in accordance with current CDC screening recommendations. Reactive: Positive for HCV antibodies. This may represent current or past HCV infection. Supplemental molecular testing will be automatically performed to determine current infection status in accordance with current CDC screening recommendations. Interpretive data was last revised on 2019. Blood 04/21/2021 10:1 8 AM CDT 04/21/2021 1:36 PM CDT us Kane Luu MD LAB MICROBIOLOGY - GENER AL ORDERABLES Final Result Performing Organization Address City/State/ZIP Co ks Phone Number NAN [phone] [facility] Department [place] [address] from Last 3 Months or Most Recently Relevant to Health Maintenance Insurance [employer] ACCESS [employer]ICE Care Teams Preschool Head Teacher Relationship Specialty Start Date End Date Tables, Kane Chase MD PCP - General Family Medicine 02/26/20
--- OUTSIDE RECORDS SUMMARY | 2024-09-25 01:03 | XMS_ITS | Encounter Summary ---
Author Organization [facility] Address [address] [place] [address] Care Team Providers Care Metal Trimmer Name Role Phone Cheo Espino MD Primary Care Provider [phone] Encounter Details Date Type Department Care Team (Late st Contact Info) Description 10/25/2023 [facility] Message Enc [address] [address] [address] [place] [address] Cheo Espino MD [address] [place] [address] Vitamin D Social History Tobacco Use Types Packs/Day Years Used Date Smoking Tobacco: Never Smokeless Tobacco: Never Comments:Counseled by Dr. Trupti solano. Alcohol Use Standard Drinks/Week Comments Yes 1.7 (1 standard drink = 0.6 oz p ure alcohol) socially PHQ-2 Answer Date Recorded Patient Health Questionnaire-2 Score 0 04/30/2023 Comments No Sex and Gender Information Value Date Recorded Sex Assigned at Not on file Legal Sex Female 3:38 PM CDT Gender Identity Not on file Sexual Orientation Not on file documented as of this encounter Plan of Treatment Upcoming Encounters Date Type Department Care Team (Late st Contact Info) Description 11/13/2024 9:40 AM CDT [facility] [address] [place] [address] Cheo Espino MD [facility] [address] [address] documented as of this encounter Visit Diagnoses Not on filedocumented in this encounter Additional Health Concerns Assessment Noted Time PHQ-9 Depression Total Score: 0 04/30/20 2:42 PM CDT documented as of this encounter Care Teams Metal Trimmer Relationship Specialty Start Date End Date Cheo Espino MD [facility] [address] [address] PCP - General INTERNAL MEDICINE 04/30/23 documented as of this encounter
--- OUTSIDE RECORDS SUMMARY | 2024-09-25 01:03 | XMS_ITS | Referral Summary ---
Author Organization [facility] Address [address] [place] [address] Care Team Providers Care Broadcast Checker Name Role Phone Jus, Kane Chase MD [...] most consistent with a benign follicular nodule ([place] II) with degenerative changes seen. Assessment & [...] results Assessment & Plan (08/27/2020 7:54 AM PRINCIPAL HARDWARE ARCHITECT): Reviewed pt last thyroid ultrasound report Performed [...] covid symptom Swelling of lymph node 08/27/2020 Social History Tobacco Use Types Packs/Day Years [...] on file Legal Sex Female 2:17 AM PRINCIPAL HARDWARE ARCHITECT Gender Identity Female 08/26/2020 9:52 AM PRINCIPAL HARDWARE ARCHITECT Sexual Orientation Not on file Last Filed [...] 01/31/2024 10:22 AM CDT Plan of Treatment Not on file Procedures Procedure Name Priority Date/Time Associated Diagnosis [...] 8 AM CDT 04/21/2021 1:36 PM CDT Kane Luu MD LAB MICROBIOLOGY - [facility] AL ORDERABLES Final Result [facility] [phone] [address] Department [place] [address] from Last 3 Months or Most Recently Relevant to Health Maintenance Insurance [employer] ACCESS CHOICE ANTHEM ACCESS CHOICE ANTHEM ACCESS CHOICE Care Teams Broadcast Checker Relationship Specialty Start Date End Date Jus, Kane Chase MD PCP - General Family Medicine 02/26/20
--- OUTSIDE RECORDS SUMMARY | 2024-09-25 01:03 | XMS_ITS | Encounter Summary ---
Author Organization [facility] Address [address] [place] [address] Care Team Providers Care Radiologic Technology Program Director Name Role Phone Unavailable Primary Care Provider Unavailabl e Encounter Details Date Type Department Care Team (Latest Contact Info) Description 03/24/2001 Outpatient Historical HIS PATIENT IN A BED Michele Oliva MD [address] [place] [address] Dept. [place] [address] Han Woodson Brachial neuritis or radiculitis NOS (Primary Dx) Social History Tobacco Use Types Packs/Day Years Used Date Smoking Tobacco: Never Assessed Comments Unknown Sex and Gender Information Value Date Recorded Sex Assigned at Not on file Legal Sex Female 3:14 AM 1ST GRADE TEACHER Gender Identity Not on file Sexual Orientation Not on file documented as of this encounter Plan of Treatment Not on file documented as of this encounter Visit Diagnoses Diagnosis Brachial neuritis or radiculitis NOS- Primary Brachial neuritis or radiculitis nos documented in this encounter
--- OUTSIDE RECORDS SUMMARY | 2024-09-25 01:03 | XMS_ITS | Continuity of Care Document ---
Author Organization [facility] Address [address] [place] [address] [address] [place] [address] Phone Care Team Providers Care Greens Tier Name Role Phone Mamta KAHLILMeg Herrera Unavailable Unavailable Procedures Procedure Date PT Re-Evaluation THERAPEUTIC EXERCISES MANUAL THERAPY FUNC ACTIVITY HOT/COLD PACK THERAPEUTIC EXERCISES NEUROMUSCULAR RE-ED MANUAL THERAPY FUNC ACTIVITY THERAPEUTIC EXERCISES NEUROMUSCULAR RE-ED MANUAL THERAPY FUNC ACTIVITY HOT/COLD PACK Foam Roll Short THERAPEUTIC EXERCISES MANUAL THERAPY FUNC ACTIVITY HOT/COLD PACK THERAPEUTIC EXERCISES MANUAL THERAPY HOT/COLD PACK PT Re-Evaluation THERAPEUTIC EXERCISES MANUAL THERAPY FUNC ACTIVITY HOT/COLD PACK THERAPEUTIC EXERCISES MANUAL THERAPY FUNC ACTIVITY HOT/COLD PACK THERAPEUTIC EXERCISES MANUAL THERAPY FUNC ACTIVITY HOT/COLD PACK THERAPEUTIC EXERCISES MANUAL THERAPY FUNC ACTIVITY HOT/COLD PACK THERAPEUTIC EXERCISES MANUAL THERAPY HOT/COLD PACK PT Evaluation Low Complexity THERAPEUTIC EXERCISES NEUROMUSCULAR RE-ED MANUAL THERAPY FUNC ACTIVITY HOT/COLD PACK PT RE-EVALUATION THERAPEUTIC EXERCISES NEUROMUSCULAR RE-ED MANUAL THERAPY HOT/COLD PACK THERAPEUTIC EXERCISES NEUROMUSCULAR RE-ED FUNC ACTIVITY HOT/COLD PACK THERAPEUTIC EXERCISES NEUROMUSCULAR RE-ED FUNC ACTIVITY HOT/COLD PACK THERAPEUTIC EXERCISES NEUROMUSCULAR RE-ED MANUAL THERAPY FUNC ACTIVITY HOT/COLD PACK THERAPEUTIC EXERCISES NEUROMUSCULAR RE-ED FUNC ACTIVITY HOT/COLD PACK THERAPEUTIC EXERCISES NEUROMUSCULAR RE-ED MANUAL THERAPY HOT/COLD PACK THERAPEUTIC EXERCISES NEUROMUSCULAR RE-ED MANUAL THERAPY HOT/COLD PACK THERAPEUTIC EXERCISES NEUROMUSCULAR RE-ED MANUAL THERAPY HOT/COLD PACK THERAPEUTIC EXERCISES NEUROMUSCULAR RE-ED HOT/COLD PACK PT EVALUATION THERAPEUTIC EXERCISES MANUAL THERAPY HOT/COLD PACK Advance Directives Directive Yes / No Effective Date File Name No Information Encounters Encounter Description Practice Location Reason(s) For Visit Diagnoses Date Provider Providers Copied on Encounter [facility] [address], [place], [place], [id number], [place] tel:[phone] [facility] No Information December-0 2-201 7 Mamta Weaver. [address] [facility], [address], [place], [address], [place]. tel:[phone] Referring Provider: Shaji Chin [address] [place] [address] [address], [place], [address]. tel:[phone] [facility] [address] [place], [place] [address], [place], [place], [id number], [place] tel:[phone] [facility] No Information Nov-2 8201 7 [place], [place], [place]. Referring Provider: Shaji Chin [address] [place] [address] [address], [place], [place], [facility]. tel:[phone], [place], [place], [address], [place] tel:[phone] [facility] No Information Nov-2 0-201 7 [place] Meg. [address] [place] [address], [address], [place], [place], [facility], . tel:[phone] Referring Provider: Shaji Chin [address] [place] [address] [address], [place], [address]. tel:[phone], [place], [place], [id number], [place] tel:[phone] [facility] No Information 8 7 [place] Meg. [address] [place] [address], [address], [place], [place], [facility], [place]. tel:[phone] Referring Provider: Shaji Chin [facility] [address], [place], [address]. tel:[phone] [facility] [address], [place], [place], [id number], [place] tel:[phone] [facility] No Information Nov- 4-201 7 [place] Meg. [address] [place] [address], [address], [place], [place], [facility], [place]. tel:[phone] Referring Provider: Shaji Chin [address] [place] [address] [address], [place], [address]. tel:[phone] [facility], [place], [place], [address], [place] tel:[phone] [facility] No Information Nov-1 1-201 7 [place] Meg. [address] [facility], [address], [place], [facility], . tel:[phone] Referring Provider: Shaji Chin [address] [place] [address] [address], [place], [address]. tel:[phone], [place], [place], [address], [place] tel:[phone] [facility] No Information Nov-0 7-201 7 [place] Meg. [address] [place] [address], [address], [place], [facility], . tel:[phone] Referring Provider: Shaji Chin [address] [place] [address] [address], [place], [address]. tel:[phone], [id number], [place] tel:[phone] [facility] No Information Nov-0 4-201 7 [place] Meg. [address] [place] [address], [address], [place], [facility], [place]. tel:[phone] Referring Provider: Shaji Chin [address] [place] [address] [address], [place], [address]. tel:[phone], [id number], [place] tel:[phone] [facility] No Information Oct-3 1-201 7 Mamta Meg. [address] [place] [address], [address], [place], [facility], [place]. tel:[phone] Referring Provider: Shaji Chin [address] [place] [address] [address], [place], [address]. tel:[phone] [facility], [address] [place] [address], [place], [id number], [place] tel:[phone] [facility] Oth symptoms and signs involving the musculoskelet al system Mar-2 3-201 7 [place] Meg. [address] [facility], [address], [place], [address], [place]. tel:[phone] Referring Provider: Shaji Chin , [address], [place], [address]. tel:[phone] [facility] [address], [place], [place], [address], [place] tel:[phone] [facility] No Information Jun-2 5- 6 Niederhoffer Lisa. . [facility], [address], [place], [place], [address], [place] tel:[phone] [facility] No Information - 6 Mamta Meg. [address] [place] [address], [address], [place], [address], [place]. tel:[phone] [facility] [address], [place], [place], [address], [place] tel:[phone] [facility] No Information - 6 Mamta Meg. [address] [place] [address], [address], [place], [address], [place]. tel:[phone] [facility] [address], [place], [place], [address], [place] tel:[phone] [facility] No Information 6 [place] Meg. [address] [place] [address], [address], [place], [address], [place]. tel:[phone] [place] [address] [address], [place], [place], [address], [place] tel:[phone] [facility] No Information 6 Niederhoffer Lisa. . [facility], [address], [place], [place], [address], [place] tel:[phone] [facility] No Information 0 8-201 6 [place] Meg. [address] [place] [address], [address], [place], [address], [place]. tel:[phone] [place] [address] [address] [facility] [address], [place], [place], [id number], tel:[phone] [facility] No Information - 6 [place] Meg. [address] [place] [address], [address], [place], [facility], . tel:[phone] [place] [address] [place] [address] 300, [place], [id number], tel:[phone] [facility] No Information 6 [place] Meg. [address] [place] [address], [address], [place], [place], [facility], [place]. tel:[phone] [place] [address] [address] [facility] [address], [place], [place], [id number], tel:[phone] [facility] No Information 6 [place] Meg. [address] [place] [address], [address], [place], [place], [facility], [place]. tel:[phone] [place] [address] [place] [address] 300, [place], [place], [address], [place] tel:[phone] [facility] No Information 0 6 Mamta Meg. [address] [place] [address], [address], [place], [facility], [place]. tel:[phone] [place] [address] [place] [address] 300, [place], [place], [address], [place] tel:[phone] [facility] Pain in right shoulderStiff ness of right shoulder, not elsewhere classifiedMus larry weakness (generalized) Arthropathy, unspecifiedOt her shoulder lesions, right shoulderAdhes dunia capsulitis of right shoulder 6 Mamta Meg. [address] [place] [address], [address], [place], [place], [facility], [place]. tel:[phone] Family History Family Member Type Diagnosis Age At Onset No Information Payers Payer name Insurance type Covered libertarian ID Raymundo tracey(s) [facility] [id number] [facility] 2017 Social History Type Description Quantity Date Captured Comments Sex Female Smoking Status No Information Chief Complaint And Reason For Visit No Information Reason For Referral Reason For Referral No Information History Of Present Illness Encounter Date Complaint History Of Prese nt Illness No Information Functional Status Date Functional Assessmen t No Information Instructions Date Instruction Additional Infor mation No Information Assessments Type Assessment Date No Information Patient Care Teams Name Effective Dates (start - stop) Status Members No Information
[2024-09-25 07:23] VITALS: BP 151/84; PULSE 86; RESP 20; TEMP 36.2; O2SAT 100; BMI 31.7
[2024-09-25] MEDS: LACTATED RINGERS 1,000 ML 150 ML IV CONT (07:43)
--- NOTE | 2024-09-25 08:10 | P.PNAN_ITS ---
Anes - Initial Pre Proc Eval Procedure: Operation Date: 09/25/24 08:30 Proposed Procedures p Screening Colonoscopy - Colt Jain MD Date/Time: 09/25/24 08:10 Surgeon: Colt Jain MD Pre Op Diagnosis: screening colonoscopy Patient Data Age: 64 Gender: F Height: 1.73 m Weight: 94.6 kg Last Vital Signs Temp 36.2 C L 09/25/24 07:23 Pulse 86 09/25/24 07:23 Resp 20 09/25/24 07:23 BP 151/84 H 09/25/24 07:23 Pulse Ox 100 09/25/24 07:23 O2 Del Method Room Air 09/25/24 07:23 Allergies Allergy/AdvReac Type Severity Reaction Status Date / Time gadobenic acid (From Allergy Intermediate Hives Verified 09/25/24 07:30 contrast - MRI) iohexol (From contrast - CT, Allergy Intermediate Hives Verified 09/25/24 07:30 X-RAY) Home Medications ?Medication ?Instructions ?Recorded ?Confirmed ?Type hydrochlorothiazide 12.5 mg tablet 12.5 mg PO DAILY #90 tabs 06/15/19 09/25/24 Rx ergocalciferol (vitamin D2) 1,250 1,250 mcg PO WEEKLY 09/08/24 09/25/24 History mcg (50,000 unit) capsule Patient hx anesthesia problems: none Family hx anesthesia problems: none Results Review: All pre-operative results and documents have been reviewed as part of the pre- operative evaluation. [facility] Family History Family History Father Family history of lung cancer, Onset Age: 55 Mother Family history of malignant neoplasm of breast in first degree relative Family history of kidney disease, Onset Age: 70 Sibling Patient's sister is in good health Patient's brother is in good health Social History Social History Years smoked: 5 Smoking status: Former smoker Tobacco type: cigarettes Second hand tobacco smoke exposure: No Smoking end date: 08/09/89 Alcohol intake: never Substance use: never Substance use type: does not use Gender identity (if verbalized by the patient): Female Anes - Eval Final PreProcedure Day of Procedure 09/25/24 08:10 Patient weight: obese Heart: regular rate and rhythm Lungs: clear to auscultation Airway: Mallampati scale class II Neurological: alert and oriented Last oral intake: >/= 8 hours ASA classification: II Emergent: no Anesthetic plan: proceed Anesthesia type and monitoring: general GIVS and standard monitoring Results Review: All pre-operative results and documents have been reviewed as part of the pre- operative evaluation. Patient states having a goiter, no difficulties breathing when laying of left side. Informed Consent: The patient's anesthetic plan and its attendant risks and benefits were discussed with the patient/family/POA. Questions were solicited and answers provided to the satisfaction of the patient/family/POA.
--- NOTE | 2024-09-25 08:24 | PM.IMHP ---
H&P: HPI History of Present Illness Date/Time: 09/25/24 08:24 Chief Complaint: Screening colonoscopy Narrative: This is the patient's 2nd colonoscopy. the 1st 1 was more than 10 years ago. There are no GI symptoms and there is no family history of colorectal cancer. Review of Systems Review of Systems: All systems reviewed & are unremarkable except as noted in HPI and below PMFSH Family History Family History Father Family history of lung cancer, Onset Age: 55 Mother Family history of malignant neoplasm of breast in first degree relative Family history of kidney disease, Onset Age: 70 Sibling Patient's sister is in good health Patient's brother is in good health Social History Social History Years smoked: 5 Smoking status: Former smoker Tobacco type: cigarettes Second hand tobacco smoke exposure: No Smoking end date: 08/09/89 Alcohol intake: never Substance use: never Substance use type: does not use Gender identity (if verbalized by the patient): Female Meds Home Medications and Allergies Home Medications ?Medication ?Instructions ?Recorded ?Confirmed ?Type hydrochlorothiazide 12.5 mg tablet 12.5 mg PO DAILY #90 tabs 06/15/19 09/25/24 Rx ergocalciferol (vitamin D2) 1,250 1,250 mcg PO WEEKLY 09/08/24 09/25/24 History mcg (50,000 unit) capsule Allergies Allergy/AdvReac Type Severity Reaction Status Date / Time gadobenic acid (From Allergy Intermediate Hives Verified 09/25/24 07:30 contrast - MRI) iohexol (From contrast - CT, Allergy Intermediate Hives Verified 09/25/24 07:30 X-RAY) Vital Signs Vital Signs - 24 hr 09/25/24 07:23 Temperature 97.1 F L Pulse Rate 86 Respiratory Rate 20 Blood Pressure 151/84 H Pulse Oximetry 100 Oxygen Delivery Room Air Exam Const: General: cooperative and healthy appearing Resp: Effort & Inspection: normal respiratory effort and able to speak in complete sentences Auscultation: clear to auscultation bilaterally Cardio: Rate: regular rate Rhythm: regular rhythm GI: Inspection: normal to inspection GI Palp: No No hepatosplenomegaly present Auscultation: normal bowel sounds Rectal Exam: deferred Skin: General skin exam: normal color Psych: Appearance: grossly normal Mental Status: mental status grossly normal Assessment and Plan Assessment and plan (1) Encounter for screening colonoscopy: Code(s): Z12.11 - Encounter for screening for malignant neoplasm of colon Status: Acute Assessment and Plan: The patient is deemed a good candidate for the procedure. Consent signed. Will proceed.
[2024-09-25 09:09] VITALS: BP 121/74; PULSE 77; RESP 20; O2SAT 99
[2024-09-25 09:19] VITALS: BP 124/77; PULSE 70; RESP 18; O2SAT 100
[2024-09-25 09:29] VITALS: BP 141/85; PULSE 66; RESP 22; O2SAT 100
== END 2024-09-25 09:43 | disposition home or self-care (01) ==
PROVIDERS: PCP Internal Medicine; Referring Provider Internal Medicine; Visit Provider Internal Medicine Gastroenterology
PROC: 0DJD8ZZ Inspection of Lower Intestinal Tract, Via Natural or Artificial Opening Endoscopic (ICD-10-PCS; CPT 45378; principal; 2024-09-25 08:30)
DX: Z12.11 Encounter for screening for malignant neoplasm of colon (principal); D12.0 Benign neoplasm of cecum; K57.30 Diverticulosis of large intestine without perforation or abscess without bleeding; Z87.891 Personal history of nicotine dependence; E66.9 Obesity, unspecified; Z68.31 Body mass index [BMI] 31.0-31.9, adult
CPT/HCPCS: 45385; 88305; J2003; J2704; J7120

== ENCOUNTER 2024-11-29 09:49 | Outpatient (CLI) | payer BC, SELFPAY ==
--- NOTE | ~2024-11-29 | DEXA_ITS ---
Bone Density Report Name: CHAKA FARNCO Age: 64 Sex: Female Ethnicity: Black Date of : 1960 Indication: postmenopausal; screening for osteoporosis; hysterectomy; Referring Provider: FLORENCIO, GABRIELA Study: Bone densitometry was performed. Exam Date: November 29, 2024 Accession number: [id number] Bone Density: Region BMD T-score Z-score Classification AP Spine(L1-L4) 1.305 2.3 3.1 Normal Femoral Neck (Left) 1.107 2.3 2.2 Normal Total Hip (Left) 1.366 3.5 3.0 Normal Femoral Neck (Right) 1.139 2.6 2.5 Normal Total Hip (Right) 1.325 3.1 2.7 Normal Total Hip Mean 1.345 3.3 2.9 Normal World Health Organization criteria for BMD impression classify patients as: Normal (T-score at or above -1.0), Osteopenia (T-score between -1.0 and -2.5), or Osteoporosis (T-score at or below -2.5). Clinical Information Provided by Patient: Has used the following medications: Vitamin D, Calcium Has the following medical conditions: Hysterectomy Patient maximum height was 68 Menopause Age: 44 No regular weight bearing exercise Drinks caffeinated beverages Onset of menses at age 17 Number of children 2 Impression: The patient has normal bone mass. Discussion: LOW RISK OF FRACTURE; BONE DENSITY IS WELL ABOVE THE MINIMUM DESIRABLE LEVEL AND ABOVE AVERAGE FOR AGE AND SEX AT ALL SKELETAL SITES TESTED. This person's bone density is above expected limits for age and sex. This is rarely clinically significant, but should be pursued if there are significant musculoskeletal complaints. The patient should follow a healthful lifestyle (good nutrition with adequate calcium and vitamin D, and appropriate weight-bearing exercise). Follow-Up: Consider repeating this study in 5 years or sooner if there is some new clinical indication. Reported by: EMILIE on 11/29/2024 10:30:00 AM. Reviewed, dictated and finalized at location ANilson BARAJAS
--- OUTSIDE RECORDS SUMMARY | 2024-11-29 11:07 | XMS_ITS | Clinical Summary ---
Author Organization [facility] Address [address] [place] [address] Care Team Providers Care Machine Cementer Name Role Phone Cheo Espino MD Primary Care Provider [phone] Allergies Active Allergy Reactions Criticality Noted Date [...] most consistent with a benign follicular nodule ([place] II) with degenerative changes seen. Last Assessment & Plan: Multinodular goiter S/p left thyroid nodule FNA biopsy with benign cytology No compressive symptoms performed a follow up thyroid ultrasound in office today - noted stable thyroid nodules Follow up in one year Encounters Date Type Department Care Team Description 09/25/2024 Scan [facility] Scanned, [facility] Colonoscopy Report (SCAN); Pathology (SCAN) from Last 3 Months Immunizations Immunization Administration Dates Next Due Tdap (Adacel) 10/22/2023 [...] Care Team (Late st Contact Info) Description 12/15/2024 2:00 PM CDT Office Visit [facility] [place] [address] [place] [address] [address] [place] [address] Cheo Espino MD [address] [facility] [address] [place] [address] Health Maintenance Due Date Last Done Comments Mammogram Screening 2002 Pneumococcal Vaccine: 50+ Years (1 of 1 - PCV) 2012 Zoster Vaccines (1 of 2) 2012 COVID-19 Vaccine (1 - 2023-2 5 season) 2024 PHQ-2 (Physician [place]) 08/09/2024 05/01/2024 Annual Physical 05/01/2025 05/01/2024, 04/30/2023 DTaP, Tdap and Td Vaccines ( 2 - Td or Tdap) 10/21/2033 10/22/2023 Colorectal Cancer Screening Colonoscopy (10 Years) 09/25/2034 09/25/2024, 07/10/2014 RSV Immunization or 60+ Years (1 - [...] Procedure Name Priority Date/Time Associated Diagnosis Comments PATHOLOGY GENERIC (SCAN ORDER) 09/25/2024 COLONOSCOPY GENERIC (SCAN ORDER) 09/25/2024 HEPATITIS C ANTIBODY Routine 05/01/2024 10:17 AM CDT Encounter for hepatitis C screening test for low risk patient from Last 3 Months or Most Recently Relevant to Health Maintenance Results * PATHOLOGY GENERIC (SCAN ORDER) (09/25/2024) 09/25/2024 us [facility] Scanned SCANNING Final Resu lt * COLONOSCOPY GENERIC (SCAN ORDER) (09/25/2024) 09/25/2024 [facility] [place] [place] [facility] Scanned SCANNING Final Resu lt * HEPATITIS C ANTIBODY ([facility] ONLY) (05/01/2024 10:17 AM CDT) HEPATITIS C AB NON-REACTI VE NON-REACT VASU 05/01/2024 11:18 PM CDT [facility] Comment: ANTIBODIES TO HCV NOT DETECTED. DOES NOT EXCLUDE THE POSSIBILITY OF EXPOSURE TO HCV. 05/01/2024 10:1 7 AM CDT Cheo Espino MD LABORATORY Final Result [facility] [address] [place] [address], [id number] from Last 3 Months or Most Recently Relevant to Health Maintenance Insurance [facility] Care Teams Machine Cementer Relationship Specialty Start Date End Date Cheo Espino MD [address] [facility] [address] [place] [address] PCP - General INTERNAL MEDICINE 04/30/23
--- OUTSIDE RECORDS SUMMARY | 2024-11-29 11:07 | XMS_ITS | Encounter Summary ---
Author Organization [facility] Address [address] [place] [address] Care Team Providers Care Iron Molder Helper Name Role Phone Cheo Espino MD Primary Care Provider Encounter Details Date Type Department Care Team (Late st Contact Info) Description 10/25/2023 [facility] Message Enc [place] [address] [address] [place] [address] Cheo Espino MD [address] [place] [address] Vitamin D Social History Tobacco Use [...] Description 12/15/2024 2:00 PM CDT Office Visit [address] [place] [address] Cheo Espino MD [facility] [address] [address] documented as of this encounter Visit Diagnoses Not on filedocumented in this encounter Additional Health Concerns Assessment Noted Time PHQ-9 Depression Total Score: 0 04/30/20 2:42 PM CDT documented as of this encounter Care Teams Iron Molder Helper Relationship Specialty Start Date End Date Cheo Espino MD [facility] [address] [address] PCP - General INTERNAL MEDICINE 04/30/23 documented as of this encounter
--- OUTSIDE RECORDS SUMMARY | 2024-11-29 11:07 | XMS_ITS | Encounter Summary ---
Author Organization [facility] Address [address] [place] [address] Care Team Providers Care Public Transit Specialist Name Role Phone Unavailable Primary Care Provider Unavailabl e Encounter Details Date Type Department Care Team (Latest Contact Info) Description 03/24/2001 Outpatient Historical HIS PATIENT IN A BED Michele Oliva MD [address] [place] [address] 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
--- OUTSIDE RECORDS SUMMARY | 2024-11-29 11:07 | XMS_ITS | Clinical Summary ---
Author Organization [facility] Address [address] [place] [address] Care Team Providers Care Investigator Narcotics Name Role Phone Jus, Kane Chase MD [...] most consistent with a benign follicular nodule ([place] II) with degenerative changes seen. Assessment & [...] results Assessment & Plan (08/27/2020 7:54 AM SYSTEM ARCHITECT): Reviewed pt last thyroid ultrasound report [...] on file Legal Sex Female 2:17 AM SYSTEM ARCHITECT Gender Identity Female 08/26/2020 9:52 AM SYSTEM ARCHITECT Sexual Orientation Not on file Obstetrics History [...] 04/30/2022, 03/26/2021 Breast Cancer Screening-Mammogram 08/18/2023 08/18/2022 Depression Screening 01/30/2025 01/31/2024, 06/18/2022, 04/30/2022, Additional history exists Influenza Vaccine (Season Ended) 2025 DTaP/Tdap/Td Vaccine (2 - Td or Tdap) [...] Final Result Performing Organization Address City/State/ZIP Co co Phone Number [facility] [phone] [facility] Department [place] [address] from Last 3 Months or Most Recently Relevant to Health Maintenance Insurance [employer] [facility] ACCESS CHOICE Care Teams Investigator Narcotics Relationship Specialty Start Date End Date Tables, Kane Chase MD PCP - General Family Medicine 02/26/20
--- OUTSIDE RECORDS SUMMARY | 2024-11-29 11:07 | XMS_ITS | Referral Summary ---
Author Organization [facility] Address [address] [place] [address] Care Team Providers Care Oleo Hasher And Renderer Name Role Phone Jus, Kane Chase MD [...] most consistent with a benign follicular nodule ([place] II) with degenerative changes seen. Assessment & [...] results Assessment & Plan (08/27/2020 7:54 AM APPLIED BIOLOGY PROFESSOR): Reviewed pt last thyroid ultrasound report Performed [...] on file Legal Sex Female 2:17 AM APPLIED BIOLOGY PROFESSOR Gender Identity Female 08/26/2020 9:52 AM APPLIED BIOLOGY PROFESSOR Sexual Orientation Not on file Last Filed [...] CDT Kane Luu MD LAB MICROBIOLOGY - [facility] AL ORDERABLES Final Result [facility] [id number] [address] Department [place] [address] from Last 3 Months or Most Recently Relevant to Health Maintenance Insurance [facility] ACCESS CHOICE ANTHEM ACCESS CHOICE ANTHEM ACCESS CHOICE Care Teams Oleo Hasher And Renderer Relationship Specialty Start Date End Date Jus, Kane Chase MD PCP - General Family Medicine 02/26/20
--- OUTSIDE RECORDS SUMMARY | 2024-11-29 11:07 | XMS_ITS | Clinical Summary ---
Author Organization [facility] Address [address] [facility] Attn: Epic Prelude ADT [place] [address] Care Team Providers Care Mill Tender Second Operator Name Role Phone Unavailable Primary Care Provider Unavailabl e Social History Tobacco Use Types Packs/Day Years Used Date Smoking Tobacco: Never Assessed Comments Unknown Sex and Gender Information Value Date Recorded Sex Assigned at Not on file Legal Sex Female 3:14 AM CERTIFIED MEDICATION TECHNICIAN Gender Identity Not on file Sexual Orientation Not on file Plan of Treatment Health Maintenance Due Date Last Done Comments DTAP/TDAP/TD VACCINES (1 - Tdap) 1981 HPV/Cotest (21-29) 1983 CERVICAL CANCER SCREENING 1992 HPV/Cotest (30-65) 1992 PAP SMEAR 1992 BREAST CANCER SCREENING 2002 COLORECTAL SCREENING 2007 Colorectal Cancer Screening 2007 FIT-DNA Q 3 years 2007 FIT/FOBT Q 1 year 2007 Flex Sig/CT Colonography Q 5 years 2007 ZOSTER VACCINE (1 of 2) 2012 INFLUENZA VACCINE (#1) 2024 RSV VACCINE (60+ or ) (1 - 1-dose 75+ series) 2037
== END 2024-11-29 09:50 | disposition home or self-care (01) ==
LOC: ANHIMG 09:54
PROVIDERS: PCP Internal Medicine; Visit Provider Nurse Practitioner
DX: Z13.820 Encounter for screening for osteoporosis (principal)
CPT/HCPCS: 77080

== ENCOUNTER 2024-12-26 15:34 | Outpatient (CLI) | payer BC, SELFPAY ==
--- NOTE | ~2024-12-26 | MM_ITS ---
EXAMINATION: MM screening hafsa BI w suman HISTORY: Screening TECHNIQUE: Craniocaudal and mediolateral oblique 3-D tomosynthesis images were obtained and synthetic 2-D images were generated. CAD analysis was submitted and interpreted. COMPARISON: Comparison to multiple prior studies sequentially, with oldest reviewed study dated 04/20. BREAST PARENCHYMAL COMPOSITION: Not Dense: The breasts are almost entirely fatty. FINDINGS: There is no evidence of suspicious mass, calcification, or architectural distortion to sugg est malignancy in either breast. There has been no suspicious interval change. IMPRESSION: 1. No mammographic evidence of malignancy. 2. Recommend routine screening mammography in one year. BI-RADS Category 1: Negative Reviewed, dictated and finalized at location B.
--- OUTSIDE RECORDS SUMMARY | 2024-12-26 15:54 | XMS_ITS | Clinical Summary ---
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
--- OUTSIDE RECORDS SUMMARY | 2024-12-26 15:54 | XMS_ITS | Clinical Summary ---
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 Assessment & [...] results Assessment & Plan (08/27/2020 7:54 AM DRAFTER PLUMBING): Reviewed pt last thyroid ultrasound report Performed [...] on file Legal Sex Female 2:17 AM DRAFTER PLUMBING Gender Identity Female 08/26/2020 9:52 AM DRAFTER PLUMBING Sexual Orientation Not on file Obstetrics History [...] Final Result Performing Organization Address City/State/ZIP [place] Phone Number NAN [phone] [facility] [place] [address] from Last 3 Months or Most Recently Relevant to Health Maintenance Insurance [email or web address] [facility] ACCESS CHOICE Care Teams Chief Of Staff Relationship Specialty Start Date End Date Tables, Kane Chase MD PCP - General Family Medicine 02/26/20
--- OUTSIDE RECORDS SUMMARY | 2024-12-26 15:54 | XMS_ITS | Referral Summary ---
[facility] Organization 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 Assessment [...] results Assessment & Plan (08/27/2020 7:54 AM DIRECTOR ENTERPRISE SYSTEMS): Reviewed pt last thyroid ultrasound report Performed [...] on file Legal Sex Female 2:17 AM DIRECTOR ENTER[employer]ISE SYSTEMS Gender Identity Female 08/26/2020 9:52 AM DIRECTOR [employer] Sexual Orientation Not on file Last Filed [...] CDT Kane Luu MD LAB MICROBIOLOGY - [facility] ORDERABLES Final Result NAN [phone] [address] [place] [address] from Last 3 Months or Most Recently Relevant to Health Maintenance Insurance [facility] ACCESS CHOICE ANTHEM ACCESS CHOICE ANTHEM ACCESS CHOICE Care Teams Traveling Phlebotomist Relationship Specialty Start Date End Date Jus, Kane Chase MD PCP - General Family Medicine 02/26/20
--- OUTSIDE RECORDS SUMMARY | 2024-12-26 15:54 | XMS_ITS | Encounter Summary ---
Author Organization [employer] Address [address] [place] [address] Care Team Providers Care Blending Machine Operator Name Role Phone Unavailable Primary Care Provider Unavailabl e Encounter Details Date Type Department Care Team (Latest Contact Info) Description 03/24/2001 Outpatient Historical HIS PATIENT IN A BED Michele Oliva MD [address] [place] [address] 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
== END 2024-12-26 15:35 | disposition home or self-care (01) ==
LOC: ANHIMG 15:51
PROVIDERS: PCP Internal Medicine; Visit Provider Nurse Practitioner
DX: Z12.31 Encounter for screening mammogram for malignant neoplasm of breast (principal)
CPT/HCPCS: 77063; 77067